=== PATIENT | male | born 1960 | race Caucasian/White ===

== ENCOUNTER 2018-08-19 23:58 | Emergency (ER) | payer MEDICAID ==
[~2018-08-19] VITALS: Ht 172.7 cm; Wt 63.5 kg
[2018-08-20 00:07] VITALS: Ht 172.7 cm; Wt 63.5 kg
[2018-08-20 01:33] VITALS: BP 134/73
== END 2018-08-20 01:56 | disposition home or self-care (01) ==
LOC: ED 23:58
DX: M79.604 Pain in right leg (principal); I10 Essential (primary) hypertension; E11.9 Type 2 diabetes mellitus without complications; Z86.73 Personal history of transient ischemic attack (TIA), and cerebral infarction without residual deficits
CPT/HCPCS: J1885

== ENCOUNTER 2019-03-03 15:36 | Emergency (ER) | payer MEDICAID ==
[~2019-03-03] VITALS: Ht 162.6 cm; Wt 67.1 kg
[2019-03-03 15:49] VITALS: BP 126/71; Ht 162.6 cm; Wt 67.1 kg
== END 2019-03-03 16:21 | disposition home or self-care (01) ==
LOC: ED 15:36
DX: E11.622 Type 2 diabetes mellitus with other skin ulcer (principal); L97.829 Non-pressure chronic ulcer of other part of left lower leg with unspecified severity; I10 Essential (primary) hypertension; Z86.73 Personal history of transient ischemic attack (TIA), and cerebral infarction without residual deficits

== ENCOUNTER 2019-06-03 09:22 | Emergency (ER) | payer MEDICAID ==
[~2019-06-03] VITALS: Ht 162.6 cm; Wt 67.1 kg
[2019-06-03 09:28] VITALS: BP 144/70; Ht 162.6 cm; Wt 67.1 kg
== END 2019-06-03 11:13 | disposition home or self-care (01) ==
LOC: ED 09:22
DX: L25.9 Unspecified contact dermatitis, unspecified cause (principal); S30.821A Blister (nonthermal) of abdominal wall, initial encounter; T81.89XA Other complications of procedures, not elsewhere classified, initial encounter; I10 Essential (primary) hypertension; E11.9 Type 2 diabetes mellitus without complications; E78.5 Hyperlipidemia, unspecified; Z86.73 Personal history of transient ischemic attack (TIA), and cerebral infarction without residual deficits; X58.XXXA Exposure to other specified factors, initial encounter; Y93.89 Activity, other specified; Y92.89 Other specified places as the place of occurrence of the external cause; Y99.8 Other external cause status